=== PATIENT | female | born 1975 | race Two or more races ===

== ENCOUNTER 2017-01-18 06:42 | Emergency (ER) | payer MEDICAID ==
[2017-01-18] MEDS ORDERED: CIPRODEX OTIC 150 GTTS/7.5 ML BOT SUSP.DROP OT SCH ×2 (07:30→09:00)
== END 2017-01-18 08:00 | disposition home or self-care (01) ==
LOC: ED 06:42
DX: H60.93 Unspecified otitis externa, bilateral (principal)
CPT/HCPCS: 99282 ×2; A9270